=== PATIENT | male | born 1965 | race Hispanic/Latino ===

== ENCOUNTER → 2023-10-18 | Day surgery (SDC) | payer OTHER ==
[~2023-10-18] MED LIST: BACLOFEN10 MG PO; FENTANYL CITRATE/PF 100MCG/2 ML INJ ONE; HYDROCHLOROTHIA25 MG; LACTATED RINGER'S 1,000 ML ONE; MIDAZOLAM HCL 2 MG/2 ML VIAL ONE; NEURONTIN300 MG PO; OR PHACO EYE KIT ONE; PREOP PHACO EYE KIT ONE; PROPARACAINE HCL 0.5% OP SOLN 15 ML BTL ONE; PROPOFOL IV EMULSION 10 MG/ML 20 ML VIAL ONE; ZESTRIL10 MG PO
[2023-10-18 13:45] VITALS: BP 145/89; PULSE 64; RESP 14; O2SAT 97
== END | disposition home or self-care (01) ==
LOC: OR 08:56
PROVIDERS: ATTEND Ophthalmology
DX: H25.12 Age-related nuclear cataract, left eye (principal); I10 Essential (primary) hypertension; Z01.810 Encounter for preprocedural cardiovascular examination; Z79.899 Other long term (current) drug therapy
CPT/HCPCS: 66984; 93005; J2250; J2704; J3010; J7121; V2632